=== PATIENT | female | born 2000 | race Caucasian/White ===

== ENCOUNTER 2023-03-10 18:14 | Emergency (ER) | payer OTHER ==
[~2023-03-10] VITALS: Ht 170.2 cm; Wt 122.7 kg
[2023-03-10 18:40] VITALS: BP 166/106
[2023-03-10] MEDS ORDERED: IBUP-2028 MT (23:21)
[2023-03-10] MEDS ORDERED: TOPUD PO (23:21)
== END 2023-03-10 23:44 | disposition home or self-care (01) ==
LOC: ER 18:14
DX: S00.12XA Contusion of left eyelid and periocular area, initial encounter (principal); V49.9XXA Car occupant (driver) (passenger) injured in unspecified traffic accident, initial encounter; Y93.89 Activity, other specified; Y92.89 Other specified places as the place of occurrence of the external cause; Y99.8 Other external cause status
CPT/HCPCS: 70486; 99284